=== PATIENT | male | born 1990 | race Caucasian/White ===

== ENCOUNTER 2022-01-08 07:44 | Emergency (ER) | payer BC, SELFPAY ==
[2022-01-08 07:45] VITALS: BP 146/98; PULSE 90; RESP 18; TEMP 36.6; O2SAT 99; BMI 32.8
--- NOTE | 2022-01-08 08:28 | RAD_ITS ---
STUDY: X-RAY - LUMBAR SPINE REASON FOR EXAM: Male, 31 years old. LOW BACK PAIN X5 DAYS AFTER GIVING CHILD A HORSEY RIDE ON HIS BACK. NO PAIN/NUMBNESS IN EITHER LEG TECHNIQUE: 3 view(s) of the lumbar spine were obtained. COMPARISON: None FINDINGS: Normal lumbar lordosis. There is no substantial scoliosis. There is a normal alignment of the vertebrae. Normal vertebral bodies and endplates. Normal disc space heights. No visualized fracture or compression deformity. The soft tissue structures are unremarkable. RAD/Lumbar Spine 2 or 3 Views IMPRESSION: Normal x-ray examination of the lumbar spine. Electronically Signed: Emmett Braga MD at 9:53 EDT ,
--- NOTE | 2022-01-08 08:29 | ED.VIS.BACK ---
HPI History of Present Illness Chief Complaint: Back Informant: patient Onset/Context/Timing Onset: Days (5) Injury: twisting (Playing with children at home) Timing: Continuous Quality: Aching Location: Lumbar and Buttock (At times but no radiation into legs) Current Severity: Moderate Maximum Severity: Severe Worsened by: improves with Bending Relieved by: - (Standing) Associated Symptoms Associated Symptoms: Negative for Numbness, Tingling, Radiation to Right Leg, Radiation to Left Leg, Abdominal Pain, Dysuria, Unable to Ambulate, Urinary Retention, Urinary Incontinence, Constipation and Fecal Incontinence Narrative Narrative: Patient had a remote back injury, 4 times a year he gets locked up like this, this time it was triggered by doing something when he was playing with his kids, not exactly sure the mechanism but it was not severely traumatic. He was carrying one of his children on his shoulders, and playing with the other one on the floor. [facility] Medical History (Updated 01/08/22 @ 11:[address] Caesar Pratt MD) History of back injury Home Medications oxycodone-acetaminophen 1 tab PO Q4H PRN 3 Days #18 tablet 01/08/22 [Rx Last Taken Unknown] Allergy/AdvReac Type Severity Reaction Status Date / Time No Known Allergies Allergy Verified 01/08/22 07:46 Social History Smoking Status: Current every day smoker tobacco type: smokeless tobacco ROS ROS ED Constitutional Constitutional ED: Denies chills or fever(s) Gastrointestinal Gastrointestinal: Denies abdominal pain, constipation, fecal incontinence, nausea or vomiting Genitourinary Genitourinary ED: Reports other Details: no urinary retention ; Denies abdominal discomfort or urinary incontinence Musculoskeletal Musculoskeletal: Reports as per HPI and back pain; Denies neck pain Integumentary Denies rash or wounds Neurologic Neurologic: Denies headache(s), paresthesias or weakness EXAM Physical Exam Const Vital Signs: 01/08/22 07:45 Temperature 97.9 F Temperature Source Temporal Pulse Rate 90 Respiratory Rate 18 Blood Pressure 146/98 H Blood Pressure Mean 114 Pulse Ox 99 Oxygen Delivery Method Room Air Positive well nourished and well developed General Appearance ED: well developed and NAD HEENT Negative for trauma or tenderness Eyes PERRL and EOMs intact bilaterally Neck full ROM and supple GI normal to inspection, nondistended, normoactive bowel sounds, soft to palpation and non-tender Back/Spine normal to inspection Back/Spine Narrative: Tender mildly in midline and bilateral paraspinal lumbosacral spine. Examined while standing because bending over hurts so bad. Lumbar Spine / Lower Back: normal to inspection, ROM limited and straight leg raise negative bilaterally Extremity normal to inspection, full ROM and no pedal edema Neuro oriented x3 and no sensory deficits noted Sensorium / Orientation: alert Motor Exam: strength 5/5 throughout and clonus absent Deep Tendon Reflexes: Rt Patellar (L4): 2+, Lt Patellar (L4): 2+, Rt Ankle (S1): 2+ and Lt Ankle (S1): 2+ Deep Tendon Reflexes Back: Rt Patellar (L4): 2+, Lt Patellar (L4): 2+, Rt Ankle (S1): 2+ and Lt Ankle (S1): 2+ Plantar Reflex: Downgoing: bilateral Psych mental status grossly normal and thought process normal Skin no rashes or lesions noted and no wounds MDM MDM MDM Narrative Medical decision making narrative: I did some x-rays and they were unremarkable. I reassured the patient I do not think he has a radiculopathy or a spinal cord issue, I think this is musculoskeletal in his low back as he is experienced this before. He states he wants to go to work and he cannot work this way, unfortunately I cannot do a quick fix for this problem here but I am happy to treat his symptoms and I agree with following up with either chiropractor, physical therapy, and/or his PCP. He does have 1. He states he tried a chiropractor already once and it did not help. He tried one of his grandfathers Vicodin and it did not help his pain. I gave him an injection of Norflex here and it did not help. He is able to walk, he is able to stand okay, his legs work well he just cannot bend over or move very well without significant discomfort. He is calling for a ride so we will give him stronger analgesia here prior to discharge in addition to a prescription for some Percocet and I recommend following up for a referral to physical therapy if his symptoms do not resolve. He has Flexeril at home. Radiography Diagnostic Testing: Clinical Impression(s) from Imaging Studies Lumbar Spine X-Ray 01/08/22 08:28 IMPRESSION: Normal x-ray examination of the lumbar spine. Electronically Signed: Emmett Braga MD at 9:53 EDT Reading Location ID and State: [address] [place] [address] , Service support , Discharge Plan Triage Chief Complaint: Back ED Provider: Caesar Pratt Dx/Rx/DC Orders Clinical Impression: Acute lumbosacral myofascial strain Instructions: ED Back Sprain/Strain Prescriptions: New oxycodone-acetaminophen [oxycodone-acetaminophen] 1 TABLET tablet 1 tab PO Q4H PRN (Reason: Pain) 3 Days Qty: 18 RF: 0 Primary Care Provider: Care Physician,No Primary Referrals: Care Physician,No Primary [Primary Care Provider] - Doctor,Your [STAFF PHYSICIAN] - As soon as possible (for poss referral to physical therapy) Disposition Disposition: Home, Self Care
[2022-01-08] MEDS: Orphenadrine 60 MG/2 ML Ampul IM (09:06)
[2022-01-08] MEDS: Morphine 4 MG/ML Syringe IM (11:54)
[2022-01-08] MEDS: Ketorolac 60 MG/2 ML Vial IM (11:55)
== END 2022-01-08 12:11 | disposition home or self-care (01) ==
PROVIDERS: Emergency Provider Emergency Medicine; Visit Provider Emergency Medicine
DX: S39.012A Strain of muscle, fascia and tendon of lower back, initial encounter (principal); F17.220 Nicotine dependence, chewing tobacco, uncomplicated; X50.1XXA Overexertion from prolonged static or awkward postures, initial encounter
CPT/HCPCS: 72100; 96372; 99282